=== PATIENT | female | born 1935 | race Hispanic/Latino ===

== ENCOUNTER 2019-07-10 20:11 | Inpatient (IN) | payer MEDICARE, BC ==
--- NOTE | 2019-07-10 21:37 | CT ---
CT BRAIN NONCONTRAST: DATE: 07/10/2019 HISTORY: 83-year-old female status post head trauma due to fall. FINDINGS: There is no evidence of acute intra-axial or extra-axial hemorrhage. There is no midline shift or any other mass effect. There is no extra-axial fluid collection. There is no evidence of obstructive hydrocephalus. Calvarium is intact. There is diffuse brain parenchymal volume loss. There are low att enuation areas in the white matter. These are nonspecific, but in a patient of this age, they are probably chronic ischemic white matter changes due to microvascular atherosclerosis. IMPRESSION: 1) No acute intracranial findings. 2) involutional changes and chronic ischemic white matter changes.
[2019-07-10 21:38] LABS: #Eosinphils 0.1 thou/uL (0.0-0.7); #Lymphocytes 0.8 thou/uL (1.20-3.40); #Monocytes 0.6 thou/uL (0.11-0.59); #Neutrophils 7.1 thou/uL (1.40-6.50); %Basophils 0.4 % (0.0-1.0); %Eosinophils 0.9 % (0.0-10.0); %Lymphocytes 9.5 % (21.0-51.0); %Monocytes 6.5 % (0.0-10.0); %Neutrophils 82.7 % (42.0-75.0); Hemoglobin 12.3 g/dL (12.0-16.0); Mean Corpuscular HGB CONC 33.3 g/dL (32.0-36.0); Mean Corpuscular Hemoglobin 30.5 pg (27.0-31.0); Mean Corpuscular Volume 91.5 fL (78.0-98.0); Mean Platelet Volume 7.2 fL (7.4-10.4); Platelet Count 176 thou/uL (130-400); RBC Distribution Width 12.7 % (11.5-14.5); Red Blood Cell (RBC) Count 4.05 mill/uL (4.20-5.40); White Blood Cell (WBC) Count 8.6 thou/uL (4.8-10.8)
[2019-07-10 21:44] LABS: INR-International Normal Ratio 1.1; PTT 30.5 SEC (22.9-36.1)
--- NOTE | 2019-07-10 21:53 | RAD ---
Radiograph right hip 2 views: DATE: 07/10/2019 Time: 10:15 PM HISTORY: 83-year-old female with acute traumatic right hip pain due to fall FINDINGS: Severe osteopenia. Comminuted intertrochanteric fracture with varus angulation and displacement of mu ltiple butterfly fracture fragments. IMPRESSION: 1. Acute, traumatic, displaced intertrochanteric fracture of right proximal femur. 2. Severe osteoporosis.
[2019-07-10 22:00] LABS: ALT (SGPT) 9 U/L (8-55); AST (SGOT) 14 U/L (5-34); Albumin 4.1 g/dL (3.4-4.8); Alkaline Phosphatase 89 U/L (40-110); Anion Gap 14 mmol/L (10-20); BUN (Urea Nitrogen) 25 mg/dL (9.8-20.1); Bilirubin, Total 0.5 mg/dL (0.2-1.2); Calc. Creatinine Clearance 0 mL/min (70-130); Calcium 9.3 mg/dL (7.8-10.44); Carbon Dioxide 28 mmol/L (23-31); Chloride 98 mmol/L (98-107); Estimated GFR-MDRD 60; Globulin 2.9 g/dL (2.4-3.5); Glucose 159 mg/dL (83-110); Potassium 4.3 mmol/L (3.5-5.1); Sodium 136 mmol/L (136-145)
--- NOTE | 2019-07-10 22:04 | RAD ---
Radiograph right femur 2 views: DATE: 07/10/2019 Time: 10:14 PM HISTORY: 83-year-old female with acute traumatic lower extremity pain after fall FINDINGS: Diffuse severe osteopenia. Comminuted intertrochanteric fracture, with displacement of multiple butte rfly fragments, and varus angulation. Major distal fragment is also displaced medially relative to the femoral neck. No displaced fracture of femoral diaphysis or femoral condyles identified. IMPRESSION: 1. Acute, traumatic, comminuted and significantly displaced intertrochanteric fracture of right proxi mal femur. 2. No fracture of femoral shaft.
--- NOTE | 2019-07-10 22:05 | RAD ---
Radiograph right knee 2 views: HISTORY: 83-year-old female with acute traumatic pain due to fall FINDINGS: Osteoporosis. No fracture or dislocation IMPRESSION: No fracture of the knee identified.
--- NOTE | 2019-07-10 22:09 | RAD ---
RADIOGRAPH CHEST 1 VIEW: Supine DATE: 07/10/2019 HISTORY: 83-year-old female status post acute chest trauma FINDINGS: There is no airspace density or pulmonary edema. The lateral costophrenic angles are sharp. Supine po sitioning makes this study insensitive for the detection of pneumothorax. No cardiomegaly. IMPRESSION: No acute pulmonary findings.
--- NOTE | 2019-07-10 22:11 | RAD ---
Radiograph right humerus 2 views: DATE: 07/10/2019 Time: 10:07 PM HISTORY: 83-year-old female with acute traumatic right arm pain due to fall. FINDINGS: Diffuse severe osteopenia. Transversely oriented subtle faint fracture across the surgical neck of th e humerus with slight foreshortening. Humeral diaphysis shows no acute fracture. IMPRESSION: Acute, traumatic, mildly impacted and mildly angulated fracture at the proximal humeral metaphysis.
--- NOTE | 2019-07-10 22:12 | RAD ---
Radiograph right forearm 2 views: DATE: 07/10/2019 Time: 10:10 PM HISTORY: 83-year-old female status post acute forearm trauma due to fall. FINDINGS: No fracture of the radius or ulna is identified. IMPRESSION: No fracture identified.
--- NOTE | 2019-07-10 22:52 | RAD ---
Radiograph right shoulder 3 views: DATE: 07/10/2019 Time: 10:22 PM HISTORY: 83-year-old female status post acute right shoulder traumatic pain due to fall. FINDINGS: There is mild angulation at the junction between the humeral head and surgical neck, with slight ante rior angulation of fracture apex. The actual fracture lucency is difficult to visualize because of the severe osteoporosis and probable mild impaction. No dislocation. IMPRESSION: 1. Probable fracture at the surgical neck of humerus, probably acute, with probable mild impaction. 2. Diffuse osteoporosis.
--- NOTE | 2019-07-11 00:15 | HP ---
This is Pola Chauhan PA-C dictating a report for Nikolas Diane MD. REQUESTING PHYSICIAN: Dr. Newton. ATTENDING SURGEON: Dr. Diane. CONSULTATIONS: Orthopedics, Dr. Kearney. HISTORY OF PRESENT ILLNESS: The patient is an 83-year-old woman, who resides at home, normally uses a walker to ambulate, but due to her dementia, her family states that she frequently forgets to use it. Tonight, she sustained a ground level fall, landing on her right side. She was unable to ambulate. She was brought to the emergency department by [facility], where she underwent evaluation and examination, and was noted to have a right hip fracture and right proximal humerus fracture; at which time, we were asked to evaluate the patient for admission and obtain Orthopedic consultation. The patient denies hitting her head and she shows no signs of trauma, but it was an unwitnessed fall and she did undergo a brain CT for this, which was unremarkable. ALLERGIES: NONE. CURRENT MEDICATIONS: 1. Amlodipine 5 mg daily. 2. Vitamin D3. 3. Fluoxetine 20 mg daily. 4. Simvastatin 40 mg daily. 5. Benazepril 10 mg daily. 6. Tolterodine 4 mg daily. PAST MEDICAL HISTORY: Bladder incontinence, hyperlipidemia, type 2 diabetes, and dementia. PAST SURGICAL HISTORY: Hysterectomy, cataracts, "bone spurs" in neck removed. SOCIAL HISTORY: The patient lives at home with family. There is no history of drug, tobacco, or alcohol use. REVIEW OF SYSTEMS: A 10-point review of systems is negative except otherwise stated. PHYSICAL EXAMINATION: VITAL SIGNS: Blood pressure 149/53, heart rate 66, respirations 18, oxygen saturation 100% on 2 L via nasal cannula, temperature is 97.8. GENERAL: The patient is resting comfortably in bed. She is awake, conversant. She is alert and oriented x1, which her family member state that this is her baseline. Her Jason Coma Scale is 14. She is minus 1 for confusion. HEENT. Head is normocephalic and atraumatic. Eyes, extraocular motion intact. PERRLA bilaterally. Ears are atraumatic without discharge. Nose is atraumatic without discharge. Oropharynx is clear. NECK: Nontender. Trachea is midline. There is no JVD. CHEST: Clear to auscultation with good inspiratory and expiratory effort. HEART: Regular rate and rhythm. ABDOMEN: Soft, flat, and nontender with active bowel sounds. PELVIS: Stable with tenderness to palpation to the right hip consistent with her fracture. EXTREMITIES: Neurovascularly intact x4. Right upper extremity has tenderness to palpation to the right shoulder consistent again with her fracture. Lower extremities show 1+ pitting edema. BACK: By report is atraumatic and nontender. LABORATORY FINDINGS: White blood cell count 8.6, hemoglobin 12.3, hematocrit 37.0, platelets 176. Sodium 136, potassium 4.3, chloride 98, CO2 of 28, BUN 25, creatinine 0.89, and glucose 159. LFTs are unremarkable. Troponin is 0.015. PT 14, INR 1.1, and PTT 30.5. RADIOGRAPHIC REPORTS: CT of the brain without contrast shows no acute intracranial findings. AP chest x-ray shows no acute pulmonary findings. Views of the right hip show an acute, traumatic, displaced intertrochanteric fracture of the right proximal femur. Views of the right knee show no fracture of the knee. Views of the right femur again show the intertrochanteric fracture. Views of the right forearm show no fracture. Views of the right humerus show an acute traumatic, impacted, and mildly angulated fracture of the proximal humerus. Views of the right shoulder show a fracture of the surgical neck of the humerus. ASSESSMENT: 1. Status post ground level fall. 2. Right proximal humerus fracture. 3. Right intertrochanteric femur fracture. 4. History of diabetes. 5. History of dementia. PLAN: Plan will be to admit the patient to the surgical floor. She will be made n.p.o. after midnight. She will have pain control, pulmonary toilet, gastritis and mechanical VTE prophylaxis. Postoperatively, we will have her begin work with Physical and Occupational Therapy and discuss placement at that time. Initially, the family is leaning more towards home health, home PT as the patient currently has a therapist that does come out to their house 1 to 2 times per week. The evaluation, examination, laboratory, and radiographic findings will be discussed with Dr. Diane after this dictation. Dr. Kearney was called by the emergency room and made aware of this patient also. Job ID: [id number]
[2019-07-11] MEDS ORDERED: Ondansetron PF 4 MG/2 ML Vial IVP PRN (00:47)
[2019-07-11] MEDS ORDERED: Dextrose 50% Abboject 50 ML SYRINGE SLOW IVP PRN (00:47)
[2019-07-11] MEDS ORDERED: Ondansetron ODT 4 MG TAB PO PRN (00:47)
[2019-07-11] MEDS ORDERED: Dextrose 5% in Water 1,000 ML IV PRN (00:47)
[2019-07-11] MEDS ORDERED: Sodium Chloride 0.9% 1,000 ML IV SCH ×2 (00:47→07:44)
[2019-07-11] MEDS ORDERED: Acetaminophen 1,000 MG in Premix Bag 1 BAG IVPB SCH (01:00)
[2019-07-11] MEDS ORDERED: Ketorolac Tromethamine 30 MG/ML VIAL IVP SCH (01:00)
[2019-07-11] MEDS: Morphine 2 MG/ML SYRINGE SLOW IVP PRN ×2 (01:07→05:37)
[2019-07-11 02:33] VITALS: BMI 22.1
[2019-07-11 04:51] LABS: #Lymphocytes 0.4 thou/uL (1.20-3.40); #Monocytes 0.5 thou/uL (0.11-0.59); #Neutrophils 7.4 thou/uL (1.40-6.50); %Basophils 0.2 % (0.0-1.0); %Eosinophils 0.1 % (0.0-10.0); %Lymphocytes 4.3 % (21.0-51.0); %Monocytes 6.2 % (0.0-10.0); %Neutrophils 89.2 % (42.0-75.0); Hemoglobin 10.9 g/dL (12.0-16.0); Mean Corpuscular HGB CONC 33.4 g/dL (32.0-36.0); Mean Corpuscular Hemoglobin 30.6 pg (27.0-31.0); Mean Corpuscular Volume 91.5 fL (78.0-98.0); Mean Platelet Volume 7.5 fL (7.4-10.4); Platelet Count 150 thou/uL (130-400); RBC Distribution Width 12.6 % (11.5-14.5); Red Blood Cell (RBC) Count 3.56 mill/uL (4.20-5.40); White Blood Cell (WBC) Count 8.3 thou/uL (4.8-10.8)
[2019-07-11 05:14] LABS: Anion Gap 9 mmol/L (10-20); BUN (Urea Nitrogen) 26 mg/dL (9.8-20.1); Calc. Creatinine Clearance 40 mL/min (70-130); Calcium 8.8 mg/dL (7.8-10.44); Carbon Dioxide 29 mmol/L (23-31); Chloride 101 mmol/L (98-107); Estimated GFR-MDRD 64; Glucose 156 mg/dL (83-110); Potassium 4.8 mmol/L (3.5-5.1); Sodium 134 mmol/L (136-145)
[2019-07-11] MEDS: Acetaminophen 1,000 MG in Premix Bag 1 BAG IVPB SCH ×2 (05:35→13:12)
[2019-07-11] MEDS: Ketorolac Tromethamine 30 MG/ML VIAL IVP SCH ×3 (05:36→18:20)
[2019-07-11] MEDS ORDERED: CEFAZOLIN 2 GM in Premix Bag 1 BAG IVPB SCH (07:15)
[2019-07-11] MEDS: Trospium 20 MG TAB PO SCH ×2 (08:43→22:31)
[2019-07-11] MEDS: FLUoxetine HCl 20 MG CAP PO SCH (08:43)
[2019-07-11] MEDS: Famotidine 20 MG TAB PO SCH ×2 (08:43→20:39)
[2019-07-11] MEDS ORDERED: Non-Formulary Item 1 EACH (Fluoxetine Hcl [Fluoxetine Hcl] 20 MG) PO SCH (09:00)
[2019-07-11] MEDS ORDERED: Ketorolac Tromethamine 30 MG/ML VIAL ONE (11:22)
[2019-07-11] MEDS ORDERED: Fentanyl 100 MCG/2 ML VIAL ONE (12:39)
--- NOTE | 2019-07-11 13:02 | PRG ---
DATE OF SERVICE: 07/11/2019 SUBJECTIVE: The patient is an 83-year-old woman, hospital day #2, who is admitted for a ground level fall, where she landed on her right side. Upon evaluation, she was found to have a right hip fracture and right proximal humerus fracture. Dr. Kearney plans to take the patient to the OR today for repair of these fractures. This morning, the patient has no complaints. She says her pain control is good. OBJECTIVE: VITAL SIGNS: Temperature 97.7 Fahrenheit, pulse 72, blood pressure 116/52, respirations 16, O2 saturation 100% on 2 L via nasal cannula. GENERAL: The patient is resting comfortably in bed. She is awake and alert. She is not oriented, which her says is her baseline. HEENT: Head is normocephalic and atraumatic. EOMI. ABDOMEN: Soft, flat, and nontender. PELVIS: Tender to palpation over right hip, consistent with location of her fracture. LABORATORY FINDINGS: White blood cell count 8.3, hemoglobin 10.9, hematocrit 32.6, and platelets 150. Sodium 134, potassium 4.8, chloride 101, CO2 of 29, BUN 26, creatinine 0.84, and glucose 156. ASSESSMENT: 1. Status post ground level fall, hospital day #2. 2. Right proximal humerus fracture. 3. Right intertrochanteric femur fracture. 4. History of type 2 diabetes. 5. History of hyperlipidemia. 6. History of bladder incontinence. 7. History of dementia. PLAN: Plan will be to continue observing the patient on the surgical floor. Dr. Kearney plans to take the patient to the OR later today for repair of hip and humerus fractures. Continue pain control, pulmonary toilet, gastritis, mechanical VTE prophylaxis. Once surgical repair completed, we will plan to have her work with Physical and Occupational Therapy and discuss placement at that time. Initially, the family is leaning more toward home health with home PT as the patient currently has a therapist that comes to the house two times per week. The patient was seen and evaluated by Dr. Hsasan during morning rounds. Discussed plan of care with the patient and family, who are in agreement. Job ID: [id number]
--- NOTE | 2019-07-11 13:34 | CON ---
DATE OF CONSULTATION: 07/11/2019 CHIEF COMPLAINT: Right shoulder and right leg pain. HISTORY OF PRESENT ILLNESS: Ms. Youngblood is an 83-year-old female, who was at home. She uses a cane for mobility. She does have somewhat poor balance. She lost her balance and fell onto her right side. She lives with her . She was taken to the emergency department by EMS. She was found to have a right proximal humerus fracture as well as a right subtrochanteric femur fracture. The patient has been admitted by the General Surgery Service. Orthopedics was consulted. She denies loss of consciousness. The patient has been comfortable on the floor. ALLERGIES: NONE. MEDICATIONS: 1. Amlodipine. 2. Vitamin D. 3. Fluoxetine. 4. Simvastatin. 5. Benazepril. 6. Tolterodine. PAST MEDICAL HISTORY: Hyperlipidemia, diabetes, dementia, and incontinence of the bladder. PAST SURGICAL HISTORY: Hysterectomy and cataract surgery. She has also had cervical spine surgery. SOCIAL HISTORY: The patient lives at home with her . She uses a cane. She denies tobacco, alcohol, or drug use. REVIEW OF SYSTEMS: Positive for right hip pain and right shoulder pain as per HPI. Otherwise, negative 10-point review of systems. IMAGES: X-rays of the right shoulder demonstrate a proximal humerus fracture. There is slight shortening. There is no significant displacement or angulation. The right femur demonstrates a subtrochanteric fracture of the femur with comminution and displacement. There is significant thinning and osteoporotic appearance of the bones. PHYSICAL EXAMINATION: VITAL SIGNS: Temperature is 97.7, pulse is 72, respiratory rate is 16, oxygen saturations 100% on 2 L of nasal cannula, and blood pressure is 116/52. GENERAL: She is alert, lying supine, in no apparent distress. RESPIRATORY: Breathing comfortably. ABDOMEN: Soft, nontender, and nondistended. MUSCULOSKELETAL: The patient's right lower extremity is neurovascularly intact. She does have pain with any motion at the hip. She has a shortened and externally rotated posture. The right shoulder is in a sling. She is neurovascularly intact in the upper extremity. Skin is intact throughout. IMPRESSION: Right proximal humerus fracture and right subtrochanteric femur fracture in an elderly female. PLAN: At this point, the patient will need surgical intervention regarding her femur. The shoulder can be treated nonoperatively with a sling. We will take her to the operating room for intramedullary nail of the right femur today to allow early mobilization, pain relief, and promote healing. She will have DVT prophylaxis and antibiotic prophylaxis. She is at risk for complication and is aware of this. Job ID: [id number]
[2019-07-11] MEDS ORDERED: Promethazine HCl 25 MG/ML VIAL IM PRN (13:49)
[2019-07-11] MEDS ORDERED: Ondansetron HCl/PF 4 MG/2 ML Vial IVP PRN (13:49)
[2019-07-11] MEDS ORDERED: Promethazine HCl 25 MG/ML VIAL SLOW IVP PRN (13:49)
[2019-07-11] MEDS ORDERED: PROPOFOL 200 MG/20 ML VIAL ONE (13:51)
[2019-07-11] MEDS ORDERED: ePHEDrine/0.9% NaCl/PF SYRINGE 50 mg/10 ml ONE ×2 (13:51→17:11)
[2019-07-11] MEDS ORDERED: Lidocaine 1% PF 5 ML VIAL ONE (13:51)
[2019-07-11] MEDS ORDERED: PHENYLEPHRINE-NS 100 MCG/ML 10 ML SYRINGE ONE (13:51)
--- NOTE | 2019-07-11 14:54 | RAD ---
Right femur 2 views: HISTORY: Right femur fracture FINDINGS: 6 spot fluoroscopic intraoperative images of the right femur demonstrate interval reduction and inter nal fixation of the fracture seen on exam of previous day
[2019-07-11] MEDS ORDERED: traMADol HCl 50 MG TAB PO PRN (15:44)
[2019-07-11] MEDS ORDERED: Acetaminophen 500 MG TAB PO SCH (18:00)
[2019-07-11 18:18] LABS: #Lymphocytes 0.5 thou/uL (1.20-3.40); #Monocytes 0.7 thou/uL (0.11-0.59); #Neutrophils 8.6 thou/uL (1.40-6.50); %Eosinophils 0.3 % (0.0-10.0); %Lymphocytes 4.6 % (21.0-51.0); %Monocytes 7.2 % (0.0-10.0); %Neutrophils 87.9 % (42.0-75.0); Hemoglobin 8.7 g/dL (12.0-16.0); Mean Corpuscular Hemoglobin 30.8 pg (27.0-31.0); Mean Corpuscular Volume 93.3 fL (78.0-98.0); Mean Platelet Volume 7.4 fL (7.4-10.4); Platelet Count 133 thou/uL (130-400); RBC Distribution Width 12.5 % (11.5-14.5); Red Blood Cell (RBC) Count 2.82 mill/uL (4.20-5.40); White Blood Cell (WBC) Count 9.8 thou/uL (4.8-10.8)
[2019-07-11 18:22] LABS: INR-International Normal Ratio 1.2; Prothrombin Time 15.6 SEC (12.0-14.7)
[2019-07-11 18:37] LABS: Anion Gap 11 mmol/L (10-20); BUN (Urea Nitrogen) 25 mg/dL (9.8-20.1); Calc. Creatinine Clearance 38 mL/min (70-130); Calcium 8.1 mg/dL (7.8-10.44); Carbon Dioxide 25 mmol/L (23-31); Chloride 103 mmol/L (98-107); Estimated GFR-MDRD 61; Glucose 171 mg/dL (83-110); Magnesium 1.8 mg/dL (1.6-2.6); Phosphorus 4.3 mg/dL (2.3-4.7); Potassium 4.3 mmol/L (3.5-5.1); Sodium 135 mmol/L (136-145)
--- NOTE | 2019-07-11 20:14 | OP ---
DATE OF PROCEDURE: 07/11/2019 PROCEDURE PERFORMED: Right femur intramedullary nail. PREOPERATIVE DIAGNOSIS: Right subtrochanteric femur fracture. POSTOPERATIVE DIAGNOSIS: Right subtrochanteric femur fracture. COMPLICATIONS: None. ESTIMATED BLOOD LOSS: 200 mL. MATERIAL DISPATCHER: Jimy Lott PA-C IMPLANT: Synthes long trochanteric femoral nail size 11 x 360 mm with Crosslock screws. INDICATIONS FOR PROCEDURE: Ms. Youngblood is an 83-year-old female, who fell and fractured the proximal femur. She was indicated for intramedullary nail fixation to restore anatomic alignment and promote healing and promote early mobilization. Risks have been reviewed to include nonunion, malunion, infection, wound complication, DVT, PE, and others. DESCRIPTION OF PROCEDURE: Ms. Youngblood was identified in the preoperative holding area. Her correct extremity was marked. She was carried to the operating room. She was positioned supine. General anesthesia was induced. A multidisciplinary time-out was performed. The right lower extremity was prepped and draped in sterile fashion. We began the procedure by applying traction to the lower extremity. We manipulated the fracture back into its anatomic position. We took intraoperative x-ray images. We made a small incision proximal to the trochanter. We dissected down through the subcutaneous tissues to the bony level. We inserted our guidewire. At this point, we again took images. We then overdrilled the guidewire. Next, we placed a ball-tipped guidewire from proximal to distal across the fracture site. Next, we placed our 11 mm nail over the guidewire through the fracture. We placed a proximal helical blade using a guidewire in a center-center technique. We then placed a distal Crosslock screw. This completed the procedure. We took final images. We thoroughly irrigated with copious lavage. We then closed appropriately in layers. Job ID: [id number]
[2019-07-11] MEDS ORDERED: Hydrocortisone Sod Succ/PF 100 mg/2 ml Vial IVP SCH (20:15)
[2019-07-11] MEDS: Donepezil HCl 10 MG TAB PO SCH (20:39)
[2019-07-11] MEDS: Atorvastatin Calcium 20 MG TAB PO SCH (20:39)
[2019-07-11] MEDS ORDERED: Simvastatin 40 MG TAB PO SCH (21:00)
[2019-07-11] MEDS ORDERED: Tolterodine Tartrate LA 4 MG CAP PO SCH (21:00)
[2019-07-11 21:35] LABS: Troponin I 0.456 ng/mL (< 0.028)
[2019-07-11] MEDS: CEFAZOLIN 2 GM in Premix Bag 1 BAG IVPB SCH (21:59)
[2019-07-11] MEDS: Acetaminophen 500 MG TAB PO SCH (22:31)
--- NOTE | 2019-07-12 00:10 | PRG ---
DATE OF SERVICE: 07/11/2019 SUBJECTIVE: The patient is hospital day 2, postop day #0 from a ground level fall in which she sustained a right proximal femur fracture. She has undergone right femur intramedullary nail placement. She reportedly did well during the procedure, though postoperatively, it was noted that she was hypotensive and upon further review, she had actually received small doses of vasopressors during the case and also had received 4 L of IV fluids. It was noted that once the patient got to the surgical floor that she had become hypotensive and tachycardic. She was moved to the critical care unit to begin resuscitation to include blood products. She was also given 100 mg of hydrocortisone. The patient's systolic blood pressure was in the 70s and heart rate between 110 and 120. After an hour in the critical care unit, the patient's systolic blood pressure was above 100 and her heart rate was 100. OBJECTIVE: CURRENT VITAL SIGNS: Heart rate 100, blood pressure 102/55, respirations 22, oxygen saturation is 100% on 4 L via nasal cannula. GENERAL: The patient is now resting comfortably in bed, though when I saw her in the surgical floor she was also still appeared very comfortable. She denied any pain. She is alert and oriented x1, which is her baseline. The family at bedside agreed this was her at baseline. HEENT: Unremarkable. LUNGS: Clear to auscultation with good inspiratory and expiratory effort. HEART: Slightly tachycardic with a regular rhythm. EKG showed a sinus tachycardia. ABDOMEN: Soft, flat, nontender. EXTREMITIES: Neurovascularly intact x4. Postop dressing is clean, dry, and intact. Her thigh is only slightly larger on the surgical side than the opposing side. ASSESSMENT AND PLAN: 1. Status post ground level fall, hospital day #2. 2. Status post intramedullary nail fixation. 3. Hypotension likely related to blood loss. CBC is pending. 4. History of type 2 diabetes. 5. History of hyperlipidemia. 6. History of bladder incontinence. 7. History of dementia. PLAN: Plan will be to continue to evaluate the patient. Once her unit of blood is in, we will reassess. She has labs specifically at this time, a BNP that is pending. She did have a slightly elevated troponin. We will trend this in 4 hours in light of the 4 L of IV fluids. The patient may require diureses pending her labs. She is also scheduled to get an echocardiogram. We will continue to closely monitor the patient. To include her urinary output. Job ID: [id number]
[2019-07-12] MEDS ORDERED: Insulin Regular 300 UNITS/3 ML VIAL SC PRN (01:25)
[2019-07-12 01:49] LABS: Troponin I 2.742 ng/mL (< 0.028)
[2019-07-12] MEDS ORDERED: Aspirin 325 mg Enteric Coated Tablet PO SCH (02:15)
[2019-07-12] MEDS: CEFAZOLIN 2 GM in Premix Bag 1 BAG IVPB SCH (05:04)
[2019-07-12] MEDS: Acetaminophen 500 MG TAB PO SCH ×3 (05:04→17:51)
[2019-07-12 05:54] LABS: Anion Gap 11 mmol/L (10-20); BUN (Urea Nitrogen) 24 mg/dL (9.8-20.1); Calc. Creatinine Clearance 43 mL/min (70-130); Calcium 7.9 mg/dL (7.8-10.44); Carbon Dioxide 24 mmol/L (23-31); Chloride 106 mmol/L (98-107); Estimated GFR-MDRD 60; Glucose 166 mg/dL (83-110); Magnesium 1.7 mg/dL (1.6-2.6); Phosphorus 3.9 mg/dL (2.3-4.7); Potassium 4.8 mmol/L (3.5-5.1); Sodium 136 mmol/L (136-145)
[2019-07-12 05:56] LABS: #Lymphocytes 0.3 thou/uL (1.20-3.40); #Monocytes 0.4 thou/uL (0.11-0.59); #Neutrophils 5.8 thou/uL (1.40-6.50); %Eosinophils 0.1 % (0.0-10.0); %Lymphocytes 3.8 % (21.0-51.0); %Monocytes 6.8 % (0.0-10.0); %Neutrophils 89.3 % (42.0-75.0); Hemoglobin 8.4 g/dL (12.0-16.0); Mean Corpuscular HGB CONC 33.5 g/dL (32.0-36.0); Mean Corpuscular Hemoglobin 31.1 pg (27.0-31.0); Platelet Count 101 thou/uL (130-400); Platelet Morphology Comment Appears Decreased; RBC Distribution Width 12.7 % (11.5-14.5); Red Blood Cell (RBC) Count 2.71 mill/uL (4.20-5.40); White Blood Cell (WBC) Count 6.5 thou/uL (4.8-10.8)
[2019-07-12] MEDS: Insulin Regular 300 UNITS/3 ML VIAL SC PRN ×2 (06:06→15:39)
[2019-07-12 07:12] LABS: Troponin I 7.385 ng/mL (< 0.028)
[2019-07-12] MEDS ORDERED: Magnesium 2 GM/50 ML 2 GM in Premix Bag 1 BAG IVPB SCH (08:45)
[2019-07-12] MEDS: FLUoxetine HCl 20 MG CAP PO SCH (09:46)
[2019-07-12] MEDS: Trospium 20 MG TAB PO SCH ×2 (09:46→21:38)
[2019-07-12] MEDS ORDERED: Sodium Chloride 0.9% 250 ML IV SCH (10:30)
[2019-07-12] MEDS ORDERED: Sodium Chloride 0.9% 1,000 ML IV SCH ×2 (12:15→16:00)
[2019-07-12] MEDS ORDERED: DOPamine 400 MG/D5W 250 ML 250 ML ONE (12:27)
--- NOTE | 2019-07-12 12:44 | RAD ---
EXAM: Single view of the chest HISTORY: Myocardial infarction COMPARISON: 07/10/2019 FINDINGS: Single view of the chest shows a normal sized cardiomediastinal silhouette. Atheroscleroti c calcifications are seen in the aorta. Biapical pleural thickening is seen. There is no evidence of consolidation, mass, or pleural effusion. The bones are unremarkable. IMPRESSION: No evidence of acute cardiopulmonary disease
[2019-07-12] MEDS ORDERED: DOPamine 400 MG/D5W 250 ML 250 ML IVPB SCH (12:45)
[2019-07-12] MEDS ORDERED: Calcium Chloride 1 GM/10 ML Abboject SYRINGE ONE (14:01)
[2019-07-12 14:59] LABS: Actual Bicarbonate (HCO3a) 21.9 mEq/L (22-28); CO2 Tension 49.3 mmHg (35.0-45.0); Calcium, Ionized 1.26 mmol/L (1.12-1.30); Carboxyhemoglobin (COHb) 1.2 gm% (0.0-3.0); O2 Tension (PaO2) 91.8 mmHg (> 60.0); Potassium - ABG Lab 4.36 mmol/L (3.70-5.30); pH, Arterial 7.27 (7.35-7.45)
--- NOTE | 2019-07-12 15:01 | RAD ---
Chest AP view INDICATION: Central line placement COMPARISON: Prior exam dated July 12, 2019 FINDINGS: Lungs:Moderate to severe emphysema Cardiac silhouette:Mild cardiomegaly Pulmonary vasculature:Normal Pleural spaces:No pleural effusion or pneumothorax is demonstrated. Upper abdomen:Gastric catheter projects below the left hemidiaphragm and beyond the [id number]. Osseous structures: No acute osseous abnormality. There is a comminuted fracture the proximal right h umerus. Additional findings:New left subclavian central venous catheter. The tip projects in the region of th e cavoatrial junction. No pneumothorax IMPRESSION: Stable mild cardiac megaly. Stable emphysema. New tubes and lines as above. No pneumothor ax. Proximal right humerus fracture.
[2019-07-12 15:04] LABS: ALV-art Gradient 46.215 (0-20); Puncture Site LINE
[2019-07-12 15:07] LABS: Actual Bicarbonate (HCO3v) 23 mEq/L (22-28); Base Excess -4.7 mEq/L (-2.0 to +3.0); Calcium, Ionized 1.26 mmol/L (1.16-1.32); Chloride (ABG LAB) 103 mmol/L (98-106); Hemoglobin (Hb) 9.2 g/dL (11.7-16.1); Potassium - ABG Lab 4.44 mmol/L (3.70-5.30); Sodium 134.4 mmol/L (133-146)
[2019-07-12 15:08] LABS: pH (venous) 7.23 (7.32-7.43)
[2019-07-12 16:05] LABS: #Lymphocytes 0.3 thou/uL (1.20-3.40); #Monocytes 0.6 thou/uL (0.11-0.59); %Eosinophils 0.1 % (0.0-10.0); %Lymphocytes 3.7 % (21.0-51.0); %Monocytes 8.4 % (0.0-10.0); %Neutrophils 87.8 % (42.0-75.0); Hemoglobin 9.4 g/dL (12.0-16.0); Mean Corpuscular HGB CONC 33.8 g/dL (32.0-36.0); Mean Corpuscular Hemoglobin 31.5 pg (27.0-31.0); Mean Platelet Volume 7.6 fL (7.4-10.4); Platelet Count 104 thou/uL (130-400); RBC Distribution Width 12.7 % (11.5-14.5); Red Blood Cell (RBC) Count 2.98 mill/uL (4.20-5.40); White Blood Cell (WBC) Count 6.9 thou/uL (4.8-10.8)
--- NOTE | 2019-07-12 16:14 | PRG ---
DATE OF SERVICE: 07/12/2019 SUBJECTIVE: Ms. Youngblood is an 83-year-old woman, who is postop day #1, status post right IM nail to right subtrochanteric femur fracture. The patient developed perioperative non-ST elevation myocardial infarction. This morning, the patient is hypotensive. Echocardiogram revealed dilated right ventricle with moderate to severe tricuspid regurgitation. Ejection fraction, however, is noted at 55% to 60%. No wall motion abnormality was reported. The patient is sleepy, but arousable. OBJECTIVE: VITAL SIGNS: Blood pressure 73/41, pulse was 117, respiratory rate is 22, temperature 97.7 degrees Fahrenheit, oxygen saturation 93% on room air, improved to 99% on 2 L by nasal cannula oxygen. HEENT: Pupils are equal, round, and reactive to light and accommodation. NECK: She has no jugular venous distention noted. HEART: Reveals regular rate with sinus tachycardia. No murmurs or gallops auscultated. LUNGS: Clear to auscultation bilaterally. Breathing, regular and nonlabored. ABDOMEN: Soft, nontender, and nondistended. EXTREMITIES: Reveal thready, but palpable radial and pedal pulses. NEUROLOGIC: Reveals no focal deficits present. LABORATORY FINDINGS: Today include CBC with 6500 white blood cells, hemoglobin and hematocrit 8.4 and 25.2 respectively. Platelet count is 101,000. Metabolic profile; sodium 134, potassium is 4.44, chloride is 103, glucose 200. Arterial blood gas; pH 7.27, pCO2 of 49, pO2 is 92, base excess -5.0. Ionized calcium was noted at 1.26, this was after 1 g of calcium chloride was given empirically. The patient had also received 1 unit of packed red blood cell prior to this lab findings. HEMODYNAMIC PARAMETERS: Cardiac index was 2.6. SVI was 17, SVRI is 2200. CVP was initially 7 and we had given the patient fluid boluses and completed transfusion of 1 unit of packed red blood cells. Cardiac index improved to 2.9, SVI is now 27, CVP is 12, SVRI is 1400. Mixed venous oxygen is 67%. IMPRESSION: 1. Postop day #1 status post IM nail right subtrochanteric femur fracture. 2. Perioperative non-ST elevation myocardial infarction. 3. Acute mixed hypovolemic and cardiogenic shock. 4. Acute respiratory acidosis. PLAN: Continue with volume resuscitation. Monitor urinary output and the patient's mental status as endpoint of resuscitation. Above findings and plan discussed with the patient and her family at bedside. They indicated understanding of the information given. We will wean the dopamine off as tolerated. Job ID: [id number]
[2019-07-12] MEDS: Sodium Chloride 0.9% 1,000 ML IV SCH ×2 (16:20→18:22)
[2019-07-12] MEDS ORDERED: Calcium Chloride 13.6 MEQ in Sodium Chloride 0.9% 100 ML IVPB SCH (16:30)
--- NOTE | 2019-07-12 16:42 | PRG ---
DATE OF SERVICE: 07/12/2019 SUBJECTIVE: The patient is hospital day #3, postoperative day #1, status post ground-level fall with a right proximal femur fracture. The patient also sustained a right humerus fracture, which is nonoperative, and the patient is managed in a sling at this time. The patient remains on a critical care unit. The patient is currently awake, alert, and voices no complaints of chest pain or shortness of breath. The patient did have an elevation in her troponin. The patient is pending evaluation by Cardiology. The patient just had a 2D echo obtained and also pending read by Cardiology. The patient's urinary output has slowly decreased, but remains adequate for the patient's weight. The patient's vitals are currently stable at this time. OBJECTIVE: VITAL SIGNS: Blood pressure 110/55, heart rate 90, respirations 18, SpO2 of 99% on room air. GENERAL: Elderly appearing female, lying in hospital bed, the patient is awake and alert, in no acute distress. HEENT: Unremarkable. LUNGS: Clear bilateral, good inspiratory and expiratory effort. HEART: Regular rate, regular rhythm. No murmur. ABDOMEN: Soft, nontender, and nondistended. EXTREMITIES: Neurovascularly intact. Postoperative dressing to right hip is clean, dry, and intact. Sling in place to right upper extremity. Mild edema in all extremities. LABORATORY DATA: WBC 6.5, RBC 2.71, hemoglobin 8.4, hematocrit 25.2, and platelets 101. Sodium 136, potassium 4.8, chloride 106, BUN 24, creatinine 0.90, estimated GFR is 60, glucose 166, and calcium 7.9. Phosphorus 3.9. Magnesium 1.7. Troponin 7.385. DIAGNOSTIC DATA: Chest x-ray, no evidence of acute cardiopulmonary disease. ASSESSMENT: 1. Status post ground-level fall, hospital day #3. 2. Status post intramedullary nail fixation, right femur, postoperative day #1. 3. Acute traumatic pain. 4. Volume depletion. 5. Aek-ZP-qedniuskh myocardial infarction, postoperative. 6. Blood loss anemia. 7. Right humerus fracture, non operative. 8. History of type 2 diabetes, hyperlipidemia, bladder incontinence, and dementia. PLAN: Continue supportive care. We will resuscitate as needed. Pending recommendations from Cardiology at this time. Also pending echo at this time. We will transfuse 1 unit of packed red blood cells as the patient's hemoglobin is 8.7. The patient was examined by Dr. Hassan during morning rounds. Job ID: [id number] MTDD
--- NOTE | 2019-07-12 17:02 | CON ---
DATE OF CONSULTATION: CRITICAL CARE NOTE TIME: 40 minutes. HISTORY OF PRESENT ILLNESS: The patient is a pleasant 83-year-old woman with no known cardiac history, who presented with a hip fracture and was noted to have elevated cardiac enzymes. The patient was previously seen for evaluation of venous disease of the lower extremities. She apparently has no cardiac history. The patient presented after she had a fall. She underwent surgery. The patient developed hypotension. She was noted to have elevated cardiac enzymes. The patient denies having any chest discomfort or dyspnea. The patient does have a history of dementia, she believes that since adolescence of the patient. PAST MEDICAL HISTORY: Significant for; 1. History of dementia. 2. Hypertension. 3. Diabetes mellitus. 4. Dyslipidemia. PAST SURGICAL HISTORY: 1. Arm surgery. 2. Hysterectomy. 3. Neck surgery. SOCIAL HISTORY: Nonsmoker. MEDICATIONS: See nursing notes. PHYSICAL EXAMINATION: GENERAL: This is an ill-appearing woman, who is somnolent. VITAL SIGNS: Blood pressure of 80/40. NECK: No jugular venous distention. LUNGS: Clear to auscultation. HEART: Regular rate and rhythm. Normal S1 and S2. A 1/6 systolic murmur. ABDOMEN: Nondistended. EXTREMITIES: No edema. LABORATORY RESULTS: Sodium is 136, potassium 4.8, chloride 106, bicarbonate 24, BUN 24, creatinine 0.9, and glucose 166. Troponin was 7.3. White blood cell count 6.5, hemoglobin 8.4, hematocrit 25.2, and platelets are 101. Her EKG reveals sinus bradycardia, otherwise normal ECG. IMPRESSION: 1. Hypotension following hip surgery. 2. Non-Q-wave myocardial infarction. 3. Hypertension. 4. Diabetes mellitus. 5. Dyslipidemia. 6. Dementia. This patient has suffered a non-Q-wave myocardial infarction, probably secondary to hypotension. From a cardiac standpoint, She appears to have normal left ventricular systolic function. We would actually hydrate the patient who is hypotensive. We would recommend transfusing the patient another unit of packed red blood cells. We will hold aspirin at this time as there is no evidence of acute ischemia and this is most likely due to prolonged hypotension. We will follow this patient with you through her hospitalization. Critical care note time 40 minutes. Job ID: [id number]
[2019-07-12] MEDS ORDERED: Albumin 5% 250 ML ONE (20:38)
[2019-07-12] MEDS ORDERED: Famotidine/PF 20 mg/2ml Vial SLOW IVP SCH ×2 (21:00)
[2019-07-12] MEDS ORDERED: Famotidine 20 MG TAB PO SCH (21:00)
[2019-07-12 21:38] LABS: Actual Bicarbonate (HCO3a) 22.4 mEq/L (22-28); Base Excess (BEa) -4.2 mEq/L (-2.0 to +3.0); CO2 Tension 47.9 mmHg (35.0-45.0); Calcium, Ionized 1.19 mmol/L (1.12-1.30); Carboxyhemoglobin (COHb) 0.9 gm% (0.0-3.0); Hemoglobin (Hb) 9.4 g/dL (12.0-16.0); O2 Tension (PaO2) 110.4 mmHg (> 60.0); Potassium - ABG Lab 4.47 mmol/L (3.70-5.30); pH, Arterial 7.29 (7.35-7.45)
[2019-07-12] MEDS: Atorvastatin Calcium 20 MG TAB PO SCH (21:38)
[2019-07-12] MEDS: Donepezil HCl 10 MG TAB PO SCH (21:38)
[2019-07-12 21:41] LABS: ALV-art Gradient 57.885 (0-20); Puncture Site LINE
[2019-07-12] MEDS ORDERED: Calcium Chloride 1 GM/10 ML Abboject SYRINGE IVP SCH (21:45)
[2019-07-12] MEDS: Acetaminophen 1,000 MG in Premix Bag 1 BAG IVPB SCH (22:01)
[2019-07-12 22:30] LABS: Lactic Acid 0.9 mmol/L (0.5-2.2)
--- NOTE | 2019-07-12 23:08 | OP ---
DATE OF PROCEDURE: 07/12/2019 PREOPERATIVE DIAGNOSES: 1. Postop day #1, status post intramedullary nail, right subtrochanteric femur fracture. 2. Perioperative non ST elevation myocardial infarction. 3. Acute cardiogenic and hypovolemic shock. POSTOPERATIVE DIAGNOSES: 1. Postop day #1, status post intramedullary nail, right subtrochanteric femur fracture. 2. Perioperative non ST elevation myocardial infarction. 3. Acute cardiogenic and hypovolemic shock. PROCEDURES PERFORMED: 1. Placement of a triple-lumen left subclavian central venous catheter. 2. Placement of right femoral arterial catheter. INDICATIONS FOR PROCEDURE: An 83-year-old woman is postop day #1, status post IM nail, right subtrochanteric femur fracture. She developed a perioperative non ST elevation myocardial infarction. She is currently hypotensive requiring vasopressor support. Hemodynamic monitor is warranted to guide resuscitative efforts. DESCRIPTION OF PROCEDURE: Informed consent was obtained from the patient's . The patient was placed in supine position. Left chest wall was sterilely prepped and draped in usual fashion. The skin below the left clavicle was anesthetized with 1% lidocaine. Left subclavian vein was cannulated with an 18-gauge introducer needle returning dark venous blood. Guidewire was passed through the needle and advanced into the left subclavian vein without resistance. Needle was withdrawn over a guidewire. A stab incision was made adjacent to the guidewire using 11 scalpel. Dilator was passed over the guidewire dilating the subcutaneous tissues. Dilator was removed and replaced with a triple-lumen central venous catheter, which was advanced over the guidewire and placed in the left subclavian vein without resistance stopping at the 18 cm fernanda. Guidewire was removed. Dark venous blood was aspirated from all three ports, which were individually flushed with saline. Catheter was secured to anterior chest wall using 3-0 silk suture at two points. Sterile dressings were applied. Chest x-ray was obtained confirming proper placement and no pneumothorax present. Attention was directed to the right groin, which was sterilely prepped and draped in usual fashion. The right femoral artery was palpated and cannulated with a 20-gauge introducer needle returning pulsatile blood. Guidewire passed through the needle and advanced into the right femoral artery without resistance. Needle was withdrawn over the guidewire. A 20-gauge arterial catheter was advanced over the guidewire and placed in the right femoral artery without resistance. The guidewire was removed. The catheter was connected to a transducer with proper waveforms noted. Catheter was secured to right groin using 3-0 silk suture at two points. Sterile dressings were applied. The patient tolerated the procedure without any apparent complication, remained hemodynamically stable following completion of procedure. Job ID: [id number]
--- NOTE | 2019-07-12 23:17 | PRG ---
DATE OF SERVICE: 07/12/2019 SUBJECTIVE: Patient was seen this evening during rounds. She did have 2 episodes of hypotension this evening. Initially, she was placed back on the dopamine drip and received a 250 cc bolus of albumin. Subsequently, the dopamine drip was weaned off. However, the patient shortly thereafter did become hypotensive again with systolics in the 80s. Dopamine was restarted back at 2.[address] Hassan was contacted. An additional 250 cc bolus of albumin was administered. During the initial hypotension, the patient did have a bout of nausea and vomiting which improved. The patient's condition did improve thereafter and urinary output has also been improving. OBJECTIVE: VITAL SIGNS: Temperature 97.5, pulse 93, respirations 20, oxygen saturation 100% on 2 L nasal cannula, blood pressure 109/46. GENERAL: Elderly female, lying in bed with no signs of acute distress. PULMONARY: Equal chest rise and fall. Clear breath sounds bilaterally, but there is some upper respiratory rattle, likely from mucus that the patient is not able to clear well, otherwise no signs of acute respiratory distress. CARDIAC: Regular rate and rhythm. No murmurs, gallops, or rubs. GI: Abdomen is soft, nontender, nondistended. EXTREMITIES: 2+ pulses in all extremities. Gross motor and sensation are intact. No significant swelling noted. NEURO: GCS is 14, -1 for verbal; this is the patient's baseline. LABORATORY FINDINGS: ABG completed tonight demonstrated pH of 7.29, CO2 of 47.9, O2 of 110.9, bicarb 22.4, base excess -4.2. Hemoglobin 9.4, hematocrit 28.0. Sodium 136, potassium 4.47, chloride 105, ionized calcium 1.19. DIAGNOSTIC FINDINGS: Echo completed this afternoon demonstrates ejection fraction is visually estimated at 55% to 60%, normal size left atrium, moderately enlarged right ventricle cavity, left ventricular size is normal, aortic valve leaflets are somewhat thickened, mild aortic stenosis is present, mild mitral regurg is present, Oblcffny-sw-hhzzqc tricuspid regurgitation. Chest x-ray completed this afternoon also demonstrates stable mild cardiomegaly, stable emphysema, new tubes and lines as above, no pneumothorax, proximal right humerus fracture. ASSESSMENT: 1. Status post mechanical fall. 2. Left humerus fracture, nonoperative. 3. Right intertrochanteric femur fracture, status post repair, postop day 1. 4. Perioperative jvh-YD-srnujttvm myocardial infarction. 5. Acute mixed hypovolemic and cardiogenic shock. 6. Acute respiratory acidosis, stable. PLAN: The patient has received a total of 500 cc of albumin overnight. Goal urinary output is 30 cc/h. We will use dopamine intermittently, but we will ensure the patient is well hydrated before considering starting dopamine drip. This patient was discussed with Dr. Hassan this evening before this dictation. The family was also at the bedside and was updated. Job ID: [id number]
[2019-07-13] MEDS: Acetaminophen 1,000 MG in Premix Bag 1 BAG IVPB SCH ×3 (12:22→19:30)
[2019-07-13] MEDS: FLUoxetine HCl 20 MG CAP PO SCH (12:23)
[2019-07-13] MEDS: Trospium 20 MG TAB PO SCH ×2 (12:24→21:02)
[2019-07-13 13:47] LABS: Troponin I 7.922 ng/mL (< 0.028)
[2019-07-13 15:22] LABS: Anion Gap 10 mmol/L (10-20); BUN (Urea Nitrogen) 28 mg/dL (9.8-20.1); Calc. Creatinine Clearance 40 mL/min (70-130); Carbon Dioxide 23 mmol/L (23-31); Chloride 103 mmol/L (98-107); Estimated GFR-MDRD 55; Glucose 234 mg/dL (83-110); Phosphorus 3.5 mg/dL (2.3-4.7); Potassium 4.6 mmol/L (3.5-5.1); Sodium 131 mmol/L (136-145)
[2019-07-13 15:24] LABS: Lactic Acid 0.9 mmol/L (0.5-2.2)
[2019-07-13] MEDS: Sodium Chloride 0.9% 1,000 ML IV SCH (15:57)
[2019-07-13 16:02] LABS: Magnesium 2.3 mg/dL (1.6-2.6)
[2019-07-13 17:18] LABS: %Lymphocytes 7.4 % (21.0-51.0); %Neutrophils 80.6 % (42.0-75.0); Hemoglobin 8.9 g/dL (12.0-16.0); Mean Corpuscular HGB CONC 34.4 g/dL (32.0-36.0); Mean Corpuscular Hemoglobin 32.4 pg (27.0-31.0); Mean Corpuscular Volume 94.3 fL (78.0-98.0); Mean Platelet Volume 8.9 fL (7.4-10.4); Platelet Count 103 thou/uL (130-400); RBC Distribution Width 12.7 % (11.5-14.5); Red Blood Cell (RBC) Count 2.74 mill/uL (4.20-5.40); White Blood Cell (WBC) Count 6.2 thou/uL (4.8-10.8)
[2019-07-13 17:19] LABS: #Lymphocytes 0.5 thou/uL (1.20-3.40); #Monocytes 0.7 thou/uL (0.11-0.59)
--- NOTE | 2019-07-13 17:57 | PRG ---
DATE OF SERVICE: 07/13/2019 SUBJECTIVE: The patient is hospital day #3, postoperative day #2 status post ground level fall with a right proximal femur fracture. The patient also sustained a right humerus fracture, which is nonoperative. The patient remains in the critical care unit. The patient did have another episode of hypotension overnight and was placed on dopamine briefly. This morning, the patient is awake, alert, and oriented. The patient's vital signs have been stable since. The patient's systemic vascular index is 40%. The patient continues to have good urinary output. The patient voices no complaints or concerns at this time. OBJECTIVE: VITAL SIGNS: Blood pressure 127/59, pulse 76, respirations 18, SpO2 of 100%. GENERAL: Elderly female, lying in hospital bed, in no acute distress. HEENT: Unremarkable. LUNGS: Clear bilateral, good inspiratory and expiratory effort. HEART: Regular rate, regular rhythm. No murmurs. ABDOMEN: Soft, nontender, and nondistended. EXTREMITIES: Moves all extremities. Postoperative dressing to right hip is clean, dry, and intact. Right upper extremity remains in a sling. LABORATORY DATA: WBC 6.2, RBC 2.74, hemoglobin 8.9, hematocrit 25.9, [id number]. Sodium 131, BUN 28, creatinine 0.96, estimated GFR 55, glucose 234. Troponin 7.922. BNP 1156.9. DIAGNOSTIC STUDIES: No new diagnostics. ASSESSMENT: 1. Status post ground level fall, hospital day #3, postoperative day #2 status post intramedullary nail fixation, right femur. 2. Acute traumatic pain. 3. Hypotension secondary to hypovolemia. 4. Nri-NK-ukkwjbqgy myocardial infarction, postoperative. 5. Postoperative blood loss anemia, stable. 6.Hyponatremia. 7. History of type 2 diabetes, hyperlipidemia, bladder incontinence, and dementia. PLAN: Continue supportive care. We will place the patient on a diabetic diet and stop maintenance fluids. We will discontinue hemodynamic monitoring as the patient has been stable. We will have Physical and Occupational Therapy work with the patient. We will continue to monitor the patient's urinary output and resuscitate as needed. The patient was examined this morning with Dr. Hassan. Job ID: [id number] MTDD
[2019-07-13] MEDS: Atorvastatin Calcium 20 MG TAB PO SCH (20:08)
[2019-07-13] MEDS: Apixaban 5 MG TAB PO SCH (20:08)
[2019-07-13] MEDS: Donepezil HCl 10 MG TAB PO SCH (20:08)
[2019-07-13] MEDS ORDERED: Famotidine/PF 20 mg/2ml Vial SLOW IVP SCH (21:00)
--- NOTE | 2019-07-14 00:05 | PRG ---
DATE OF SERVICE: 07/13/2019 SUBJECTIVE: The patient was seen this evening, lying in bed with no signs of acute distress. She reported her pain is well controlled. Nursing stated that she ate dinner well overnight and she was able to sit up in the neuro chair and work with Physical Therapy a little bit today. OBJECTIVE: VITAL SIGNS: Temperature 98.1, pulse 76, respirations 18, oxygen saturation 100% on 2 L nasal cannula, and blood pressure 144/79. GENERAL: Elderly female, lying in bed with no signs of acute distress. PULMONARY: Equal chest rise and fall. No signs of acute respiratory distress. CARDIAC: Regular rate and rhythm. GI: Abdomen is soft, nontender, and nondistended. EXTREMITIES: 2+ pulses in all extremities. Gross motor and sensation are intact. NEUROLOGIC: GCS is 14, -1 for verbal. The patient is at her baseline. She has dementia. LABORATORY FINDINGS: There are no new laboratory findings to discuss. DIAGNOSTIC FINDINGS: There are no new diagnostic findings to discuss. ASSESSMENT: 1. Status post mechanical fall from standing. 2. Right humerus fracture, nonoperative. 3. Right intertrochanteric femur fracture, status post repair, postop day 2. 4. Non-ST segment elevation myocardial infarction, stable. 5. Postoperative blood-loss anemia, stable. 6. Hypotension likely secondary to hypovolemia and less likely due to cardiogenic shock. PLAN: Continue supportive care. Continue physical and occupational therapy. We will continue IV fluids overnight. Continue to monitor urinary output closely. She will likely be moved from the CCU tomorrow if she continues to remain stable overnight. The patient is pending placement at rehab facility. Job ID: [id number]
[2019-07-14] MEDS ORDERED: Metoprolol Tartrate 5 MG/5 ML VIAL IVP SCH (03:30)
[2019-07-14 03:37] LABS: #Lymphocytes 0.6 thou/uL (1.20-3.40); #Monocytes 0.8 thou/uL (0.11-0.59); #Neutrophils 4.6 thou/uL (1.40-6.50); %Eosinophils 0.4 % (0.0-10.0); %Lymphocytes 10.1 % (21.0-51.0); %Neutrophils 76.6 % (42.0-75.0); Hemoglobin 8.2 g/dL (12.0-16.0); Mean Corpuscular HGB CONC 34.2 g/dL (32.0-36.0); Mean Corpuscular Hemoglobin 32.2 pg (27.0-31.0); Mean Corpuscular Volume 94.1 fL (78.0-98.0); Mean Platelet Volume 8.1 fL (7.4-10.4); Platelet Count 117 thou/uL (130-400); RBC Distribution Width 12.8 % (11.5-14.5); Red Blood Cell (RBC) Count 2.54 mill/uL (4.20-5.40); White Blood Cell (WBC) Count 6.1 thou/uL (4.8-10.8)
[2019-07-14 04:02] LABS: Anion Gap 9 mmol/L (10-20); BUN (Urea Nitrogen) 31 mg/dL (9.8-20.1); Calc. Creatinine Clearance 46 mL/min (70-130); Calcium 8.3 mg/dL (7.8-10.44); Carbon Dioxide 24 mmol/L (23-31); Chloride 105 mmol/L (98-107); Estimated GFR-MDRD 64; Glucose 156 mg/dL (83-110); Phosphorus 2.9 mg/dL (2.3-4.7); Potassium 4.5 mmol/L (3.5-5.1); Sodium 133 mmol/L (136-145)
[2019-07-14] MEDS ORDERED: PHOS-NAK 1 PKT PACK PO SCH (04:30)
[2019-07-14] MEDS ORDERED: Furosemide 20 MG/2 ML VIAL SLOW IVP SCH (04:45)
[2019-07-14] MEDS ORDERED: Digoxin 0.5 MG/2 ML AMP SLOW IVP SCH (04:45)
[2019-07-14] MEDS: Insulin Regular 300 UNITS/3 ML VIAL SC PRN ×2 (05:02→16:21)
[2019-07-14] MEDS: Sodium Chloride 0.9% 1,000 ML IV SCH (07:22)
[2019-07-14] MEDS: Trospium 20 MG TAB PO SCH ×2 (07:47→20:57)
[2019-07-14] MEDS: Apixaban 5 MG TAB PO SCH ×2 (07:47→20:57)
[2019-07-14] MEDS: FLUoxetine HCl 20 MG CAP PO SCH (07:47)
[2019-07-14] MEDS: traMADol HCl 50 MG TAB PO PRN ×2 (07:48→20:56)
--- NOTE | 2019-07-14 08:04 | RAD ---
Chest AP view INDICATION: Status post mass transfusion COMPARISON: July 12, 2019 FINDINGS: Lungs:There is new airspace opacity within the right lower lobe and left upper lobe Cardiac silhouette:The cardiomediastinal silhouette appears within normal limits. Pulmonary vasculature:Normal Pleural spaces:No pleural effusion or pneumothorax is demonstrated. Upper abdomen:No abnormality seen. Osseous structures: No acute osseous abnormality. Additional findings:Interval removal of the gastric catheter. Stable left subclavian central venous c atheter. IMPRESSION: New airspace opacity in the right lower lobe and left upper lobe may reflect pulmonary ed karla; however, developing pneumonia is not excluded. Recommend continued radiographic follow-up.
[2019-07-14] MEDS ORDERED: Dronedarone HCl 400 MG TAB PO SCH (08:45)
[2019-07-14] MEDS ORDERED: Morphine 2 MG/ML SYRINGE SLOW IVP SCH (10:30)
--- NOTE | 2019-07-14 14:07 | PRG ---
DATE OF SERVICE: 07/14/2019 SUBJECTIVE: The patient was seen this morning in the critical care unit. The patient is awake, alert, in no distress. The patient denies any pain at this time. The patient does report generalized weakness. The patient has been eating and tolerating a diet. The patient was given Lasix, digoxin, and metoprolol overnight as the patient had atrial fibrillation with rapid ventricular response. The patient is currently converted around 7 o'clock this morning to sinus rhythm with heart rate in the 70s. The patient has been hemodynamically stable. OBJECTIVE: VITAL SIGNS: Blood pressure 132/63, heart rate 84, respirations 18, SpO2 of 99% on room air. GENERAL: Elderly appearing female, lying in hospital bed, the patient is awake and alert, in no acute distress. HEENT: Unremarkable. LUNGS: Rales bilateral bases, good inspiratory and expiratory effort. HEART: Regular rate, regular rhythm. No murmur. ABDOMEN: Soft, nontender, and nondistended. EXTREMITIES: Neurovascularly intact. Postoperative dressing to right hip is clean, dry, and intact. Sling in place to right upper extremity. Mild edema in all extremities. right hip dressing clean dry and intact. LABORATORY DATA: WBC 6.1, RBC 2.54, hemoglobin 8.2, hematocrit 23.9, and platelets 117. Sodium 133, potassium 4.5, chloride 105, BUN 9, creatinine 0.84, estimated GFR 64, glucose 138, calcium 8.3, phosphorus 2.9, and magnesium 2.0. BNP 1009. DIAGNOSTIC DATA: Chest x-ray, impression, no airspace opacities in the right lower and left lower lobe, may reflect pulmonary edema. ASSESSMENT: 1. Status post mechanical fall from standing. 2. Right humerus fracture, nonoperative. 3. Right intertrochanteric femur fracture postop day #3. 4. Non ST-segment elevation myocardial infarction, stable. 5. Postop blood loss anemia stable. 6. Hypotension likely secondary to hypovolemia and less likely due to cardiogenic shock, resolved. PLAN: Continue supportive care. We will discontinue the patient's right femoral arterial line and invasive monitoring. We will move the patient to the telemetry floor for continued cardiac monitoring. We will continue to monitor urinary output. We will have Physical Therapy work with the patient and have the patient up in the chair during the day. The plan was discussed with the patient and family who agrees. The patient was evaluated by Dr. Hassan this morning during morning rounds. Job ID: [id number] MTDD
[2019-07-14] MEDS ORDERED: Sodium Chloride 0.9% 1,000 ML IV SCH (14:30)
[2019-07-14] MEDS: Dronedarone HCl 400 MG TAB PO SCH (16:24)
[2019-07-14] MEDS: Donepezil HCl 10 MG TAB PO SCH (20:57)
[2019-07-14] MEDS: Famotidine 20 MG TAB PO SCH (20:58)
[2019-07-14] MEDS: Atorvastatin Calcium 20 MG TAB PO SCH (20:58)
--- NOTE | 2019-07-14 21:20 | EKG ---
Test Reason : Blood Pressure : / mmHG Vent. Rate : 099 BPM Atrial Rate : 099 BPM P-R Int : 154 ms QRS Dur : 088 ms QT Int : 346 ms P-R-T Axes : 046 000 005 degrees QTc Int : 444 ms Normal sinus rhythm Possible Lateral infarct , age undetermined Abnormal ECG When compared with ECG of 11-JUL-2019 17:58, (Unconfirmed) Non-specific change in ST segment in Inferior leads Confirmed by Patel YODER ([id number]) on 07/14/2019 9:20:09 PM Referred By: SURAJ FRAUSTO Confirmed By:Patel YODER
--- NOTE | 2019-07-14 21:24 | EKG ---
Test Reason : Blood Pressure : / mmHG Vent. Rate : 058 BPM Atrial Rate : 058 BPM P-R Int : 126 ms QRS Dur : 088 ms QT Int : 434 ms P-R-T Axes : 017 015 012 degrees QTc Int : 426 ms Sinus bradycardia with sinus arrhythmia Low voltage QRS Borderline ECG When compared with ECG of 12-JUL-2019 02:14, (Unconfirmed) Vent. rate has decreased BY 41 BPM Nonspecific T wave abnormality no longer evident in Anterior leads Confirmed by Patel YODER ([id number]) on 07/14/2019 9:24:23 PM Referred By: DARIAN MCPHERSON Confirmed By:Patel YODER
[2019-07-14] MEDS ORDERED: Acetaminophen 1,000 MG in Premix Bag 1 BAG IVPB SCH (21:45)
--- NOTE | 2019-07-15 00:04 | PRG ---
DATE OF SERVICE: 07/14/2019 SUBJECTIVE: The patient was seen this evening on telemetry. She was lying on her left side and reported she had generalized pain. Daughter at bedside reported that she was complaining of back pain. Nursing states that she just gave her some p.o. pain medications. She has been eating a little bit and drinking plenty of fluids. OBJECTIVE: VITAL SIGNS: Temperature 98.0, pulse 77, respirations 16, oxygen saturation 95% on room air, blood pressure 175/77. GENERAL: Elderly female, lying in bed on the left side with some mild distress. PULMONARY: Equal chest rise and fall. No signs of acute respiratory distress. CARDIAC: Regular rate and rhythm. GI: Abdomen is soft, nontender, nondistended. EXTREMITIES: 2+ pulses in all extremities. Gross motor and sensation are intact. ASSESSMENT: 1. Status post mechanical fall from standing. 2. Right humerus fracture, nonoperative. 3. Right intertrochanteric femur fracture, status post repair. 4. Ckg-KJ-upglssydz myocardial infarction, stable. 5. Atrial fibrillation with rapid ventricular response overnight, resolved. The patient now in normal sinus rhythm. 6. History of urinary incontinence, hyperlipidemia, diabetes, and dementia. PLAN: Continue current diet. We will give the patient one time dose of Ofirmev and continue with previously ordered p.o. tramadol. We will also schedule Tylenol q.6 hours. Continue Multaq as recommended by Dr. Garza. We will work to increase physical therapy tomorrow. Job ID: [id number]
[2019-07-15 05:03] LABS: #Monocytes 0.8 thou/uL (0.11-0.59); #Neutrophils 4.6 thou/uL (1.40-6.50); %Basophils 0.2 % (0.0-1.0); %Eosinophils 0.3 % (0.0-10.0); %Lymphocytes 15.1 % (21.0-51.0); %Monocytes 12.5 % (0.0-10.0); %Neutrophils 71.9 % (42.0-75.0); Hemoglobin 8.7 g/dL (12.0-16.0); Mean Corpuscular HGB CONC 33.6 g/dL (32.0-36.0); Mean Corpuscular Hemoglobin 31.5 pg (27.0-31.0); Mean Corpuscular Volume 93.9 fL (78.0-98.0); Mean Platelet Volume 7.5 fL (7.4-10.4); Platelet Count 148 thou/uL (130-400); RBC Distribution Width 12.8 % (11.5-14.5); Red Blood Cell (RBC) Count 2.75 mill/uL (4.20-5.40); White Blood Cell (WBC) Count 6.4 thou/uL (4.8-10.8)
[2019-07-15 05:16] LABS: Anion Gap 10 mmol/L (10-20); BUN (Urea Nitrogen) 34 mg/dL (9.8-20.1); Calc. Creatinine Clearance 38 mL/min (70-130); Carbon Dioxide 22 mmol/L (23-31); Chloride 102 mmol/L (98-107); Estimated GFR-MDRD 51; Glucose 155 mg/dL (83-110); Magnesium 1.9 mg/dL (1.6-2.6); Phosphorus 3.3 mg/dL (2.3-4.7); Potassium 4.8 mmol/L (3.5-5.1); Sodium 129 mmol/L (136-145)
[2019-07-15] MEDS: Acetaminophen 500 MG TAB PO SCH ×4 (06:33→23:35)
[2019-07-15] MEDS ORDERED: Magnesium Sulfate 2 GM in Sodium Chloride 0.9% 100 ML IVPB SCH (08:00)
[2019-07-15] MEDS ORDERED: Magnesium 2 GM/50 ML 2 GM in Premix Bag 1 BAG IVPB SCH (08:00)
[2019-07-15] MEDS: Apixaban 5 MG TAB PO SCH ×2 (08:29→19:50)
[2019-07-15] MEDS: Dronedarone HCl 400 MG TAB PO SCH ×2 (08:29→17:12)
[2019-07-15] MEDS: Trospium 20 MG TAB PO SCH ×2 (08:29→19:51)
[2019-07-15] MEDS: FLUoxetine HCl 20 MG CAP PO SCH (08:31)
--- NOTE | 2019-07-15 12:24 | PRG ---
DATE OF SERVICE: 07/15/2019 SUBJECTIVE: The patient was seen this morning on the telemetry floor. The patient is awake, alert, and in no distress. The patient is about to work with Physical Therapy at this time. The patient continues to complain of generalized weakness. The patient denies any chest pain or shortness of breath at this time. The patient continues to tolerate a regular diet. The patient remains in sinus rhythm on the property assessment monitor without any overnight events. OBJECTIVE: VITAL SIGNS: Blood pressure 134/63, SpO2 of 93% on room air, respirations 16, heart rate 70, temperature 98.1. GENERAL: Elderly female, awake, alert, sitting up in hospital bed, in no acute distress. RESPIRATORY: Equal chest rise and fall, rales in bilateral bases, good inspiratory and expiratory effort, no respiratory distress. CARDIAC: Regular rate. Regular rhythm. EXTREMITIES: Moves all extremities, neurovascularly intact, dressing to right hip is clean, dry, and intact. LABORATORY DATA: WBC 6.4, RBC 2.75, hemoglobin 8.7, hematocrit 25.8, platelets 148. Sodium 129, potassium 4.8, chloride 102, BUN 34, creatinine 1.03, estimated GFR of 51, glucose 155, calcium 8.0, phosphorus 3.3, magnesium 1.9. DIAGNOSTICS: There is no diagnostics to review today. ASSESSMENT: 1. Status post mechanical fall from standing. 2. Right humerus fracture, nonoperative. 3. Postoperative day #4 repair of right intertrochanteric femur fracture. 4. Non ST-segment elevation myocardial infarction, stable. 5. Postoperative blood loss anemia, stable. 6. History of type 2 diabetes, dementia, hyperlipidemia. 7. Hyponatremia. PLAN: Continue supportive care. Continue to have Physical and Occupational Therapy work with the patient to increase strength. We will place the patient on a 1 L free water restriction due to hyponatremia. A intermediate facility screen has been placed. Cardiology continues to follow the patient. Job ID: [id number]
--- NOTE | 2019-07-15 17:47 | EKG ---
Test Reason : STAT Blood Pressure : / mmHG Vent. Rate : 133 BPM Atrial Rate : 104 BPM P-R Int : 000 ms QRS Dur : 076 ms QT Int : 308 ms P-R-T Axes : 000 005 213 degrees QTc Int : 458 ms Atrial fibrillation with rapid ventricular response Low voltage QRS Septal infarct , age undetermined Abnormal ECG When compared with ECG of 12-JUL-2019 11:52, Significant changes have occurred Confirmed by Patel YODER ([id number]) on 07/15/2019 5:46:56 PM Referred By: KATIUSKA Confirmed By:Patel YODER
[2019-07-15] MEDS: Atorvastatin Calcium 20 MG TAB PO SCH (19:51)
[2019-07-15] MEDS: Famotidine 20 MG TAB PO SCH (19:51)
[2019-07-15] MEDS: Donepezil HCl 10 MG TAB PO SCH (19:51)
--- NOTE | 2019-07-16 00:18 | PRG ---
DATE OF SERVICE: 07/15/2019 SUBJECTIVE: The patient was seen this evening, resting in bed. She was asleep and comfortable with no signs of acute distress. Family at bedside reported the patient worked with Physical and Occupational Therapy, but was not able to get up out of bed. States pain is better controlled and has been eating a small amount. OBJECTIVE: VITAL SIGNS: Temperature 98.2, pulse 92, respirations 16, oxygen saturation 93% on room air, blood pressure 126/60. GENERAL: Elderly female, lying in bed with no signs of acute distress. PULMONARY: Equal chest rise and fall. No signs of acute respiratory distress. CARDIAC: Regular rate and rhythm. GI: Abdomen is soft, nontender, nondistended. EXTREMITIES: 2+ pulses in all extremities. Gross motor and sensation are intact. NEUROLOGIC: GCS is 14, -1 for verbal for confusion, this is patient's baseline. ASSESSMENT: 1. Status post mechanical fall. 2. Right humerus fracture, nonoperative. 3. Right intertrochanteric femur fracture, status post repair. 4. Non-ST segment elevation myocardial infarction, stable. 5. Atrial fibrillation, rapid ventricular response, resolved. 6. History of incontinence, hyperlipidemia, diabetes, and dementia. PLAN: Continue current diet and pain regimen. Continue free water restrict to 1 L. Continue to encourage Gatorade. Continue to work with Physical and Occupational Therapy. Discontinue Dougherty today. The patient is pending placement at a care home facility and is ready for discharge at this time. Job ID: [id number]
[2019-07-16 04:57] LABS: Anion Gap 12 mmol/L (10-20); BUN (Urea Nitrogen) 33 mg/dL (9.8-20.1); Calc. Creatinine Clearance 46 mL/min (70-130); Carbon Dioxide 23 mmol/L (23-31); Chloride 102 mmol/L (98-107); Estimated GFR-MDRD 64; Glucose 144 mg/dL (83-110); Magnesium 2.1 mg/dL (1.6-2.6); Phosphorus 2.9 mg/dL (2.3-4.7); Potassium 4.7 mmol/L (3.5-5.1); Sodium 132 mmol/L (136-145)
[2019-07-16 05:16] LABS: #Eosinphils 0.1 thou/uL (0.0-0.7); #Lymphocytes 0.9 thou/uL (1.20-3.40); #Monocytes 0.7 thou/uL (0.11-0.59); #Neutrophils 5.1 thou/uL (1.40-6.50); %Basophils 0.1 % (0.0-1.0); %Eosinophils 1.2 % (0.0-10.0); %Lymphocytes 13.4 % (21.0-51.0); %Monocytes 9.7 % (0.0-10.0); %Neutrophils 75.5 % (42.0-75.0); Hemoglobin 8.7 g/dL (12.0-16.0); MDiff Complete? YES; Mean Corpuscular HGB CONC 33.7 g/dL (32.0-36.0); Mean Corpuscular Hemoglobin 31.7 pg (27.0-31.0); Mean Platelet Volume 7.8 fL (7.4-10.4); Platelet Count 170 thou/uL (130-400); Platelet Morphology Comment Appears Adequate; Polychromasia SLIGHT = 2-3 cells (100X) (0-2/hpf); RBC Distribution Width 13.4 % (11.5-14.5); Red Blood Cell (RBC) Count 2.75 mill/uL (4.20-5.40); White Blood Cell (WBC) Count 6.7 thou/uL (4.8-10.8)
[2019-07-16] MEDS: Acetaminophen 500 MG TAB PO SCH ×2 (06:04→12:35)
[2019-07-16] MEDS: FLUoxetine HCl 20 MG CAP PO SCH (09:00)
[2019-07-16] MEDS: Trospium 20 MG TAB PO SCH (09:00)
[2019-07-16] MEDS: Dronedarone HCl 400 MG TAB PO SCH (09:00)
[2019-07-16] MEDS: Apixaban 5 MG TAB PO SCH (09:01)
[2019-07-16] MEDS ORDERED: Amlodipine 5 MG TAB PO SCH (10:45)
[2019-07-16 10:48] VITALS: TEMP 97.9
[2019-07-16 12:30] VITALS: BP 172/77
--- NOTE | 2019-07-16 18:53 | DIS ---
DATE OF ADMISSION: 07/11/2019 DATE OF DISCHARGE: 07/16/2019 This is Lili Lucas NP dictating a report for Stephanie Amado MD. ADMITTING PHYSICIAN: Nikolas Diane MD. CONSULTS: 1. Dr. Kearney, Orthopedic Surgery. 2. Cardiology, Dr. Garza. DISCHARGE ATTENDING: Stephanie Amado MD. PROCEDURES: 1. On 07/10/2019, brain CT; impression, no acute intracranial findings. Evolutional changes and the chronic ischemic white matter changes. 2. Chest x-ray, impression, no acute pulmonary findings. 3. Hip x-ray, right, impression; acute traumatic displaced intertrochanteric fracture of the right proximal femur, severe osteoporosis. 4. Right knee x-ray, no fracture of the knee identified. 5. Right femur x-ray; impression, acute traumatic comminuted and significantly displaced intertrochanteric fracture of the right proximal femur. No fracture of the femoral shaft. 6. Right forearm x-ray, impression, no fracture identified. 7. Right humerus x-ray, acute traumatic mildly impacted and mildly angulated fracture of the proximal humeral metaphysis. 8. Right shoulder x-ray; impression, probable fracture of the surgical neck of humerus, probably acute; probable mild impaction, diffuse osteoporosis. 9. On 07/11/2019, right femur intramedullary nail by Dr. Schneider. 10. 12-lead EKG on 07/12, normal sinus rhythm. 11. Echocardiogram on 07/12/2019, impression; estimated ejection fraction 55% to 60%, normal size left atrium, moderately enlarged right ventricle, left ventricular size is normal. Aortic valve leaflets are somewhat thickened, aortic stenosis is present, mild mitral regurg is present. Moderate to severe tricuspid regurg. 12. On 07/12/2019, placement of a triple-lumen left subclavian central venous catheter and placement of a right femoral arterial catheter. The catheter was transduced for hemodynamics monitoring. 13. 12-lead EKG on 07/14/2019, atrial fibrillation with rapid ventricular response. 14. On 07/14/2019, chest x-ray, impression, new airspace opacity in the right lower lobe and left upper lobe, may reflect pulmonary edema. PRIMARY DIAGNOSES: Status post mechanical fall, right humerus fracture, nonoperative; right intertrochanteric femur fracture, status post IM nail; [id number] elevation myocardial infarction postop; atrial fibrillation with rapid ventricular response, resolved; postop hypotension, volume depletion, improved. SECONDARY DIAGNOSES: Urinary incontinence, hyperlipidemia, diabetes, and dementia. DISCHARGE MEDICATIONS: 1. Tylenol 1000 mg q.6 hours as needed for pain. 2. Amlodipine 5 mg p.o. daily. 3. Eliquis 2.5 mg p.o. b.i.d. 4. Aricept 10 mg p.o. at bedtime. 5. Multaq 200 mg p.o. b.i.d. with meals. 6. Fluoxetine 20 mg p.o. daily. 7. Metoprolol 25 mg p.o. daily. 8. Senokot S 8.6 mg/50 mg two tablets p.o. b.i.d. as needed for constipation. 9. Zocor 40 mg p.o. at bedtime. 10. Tolterodine tartrate 4 mg capsule ER 24 hours p.o. at bedtime. HISTORY OF PRESENT ILLNESS AND HOSPITAL COURSE: This is an 83-year-old woman who resides at home, normally uses a walker to ambulate due to her dementia. Her family states that she frequently forgets to use her walker. The patient presented to the emergency room with a ground level fall landing onto her right side. The patient was unable to ambulate after the fall. The patient was found to have a right intertrochanteric femur fracture and proximal right humerus fracture. The patient went to the OR for repair of her right intertrochanteric femur fracture and became hypotensive postop. The patient required 4 L of normal saline and 1 unit of packed red blood cells. The patient was resuscitated and hemodynamic monitors were transduced. The patient became fluid overloaded after resuscitation and went into atrial fibrillation with rapid ventricular response. The patient eventually converted and was moved out of the CCU into the telemetry unit. Cardiology continued to follow the patient during her hospital stay. Medications were adjusted. The patient did have a short episode of atrial fibrillation with RVR last night. Cardiology, Dr. Garza is aware and okay for the patient to be discharged today. Medication metoprolol was added to the patient's medication regimen. The patient had generalized weakness and deconditioning throughout her hospital stay. The patient did work with Physical Therapy, but still not able to ambulate. The patient's pain was well controlled throughout her hospital stay. The patient also had a non-ST elevation myocardial infarction, most likely due to hypotension postop. On the day of discharge, the patient nor family had any complaints. The patient is awake, alert, and her pain was well controlled. The patient continues to tolerate a diabetic diet. The patient's vital signs were stable on the day of discharge, and her exam was unremarkable including cardiopulmonary and GI exam. The patient was deemed stable for discharge to [facility] for continued physical and occupational therapy. DISPOSITION: Stable. DISCHARGE INSTRUCTIONS: 1. Location: [facility] unit, [place]. 2. Diet: Diabetic diet. 3. Activity: Orthopedic limitations, partial weightbearing 50% right upper extremity, the patient is to wear a sling for comfort. The patient is weightbearing as tolerated left upper extremity, right lower extremity, and left lower extremity. 4. Followup: Follow up with Dr. Schneider in 10 days. Follow up with Cardiology. No need to follow up with Trauma Services. Please call for any questions. This is just a summary of the patient's hospital course, please see the medical record for the entire visit. Job ID: [id number]
[2019-07-16] MEDS ORDERED: Senokot S 8.6-50 MG TAB PO SCH (21:00)
[2019-07-17] MEDS ORDERED: Polyethylene Glycol 3350 17 GM Packet PO SCH (09:00)
[2019-07-17] MEDS ORDERED: Amlodipine 5 MG TAB PO SCH (09:00)
== END 2019-07-16 14:48 | DRG 480 ==
LOC: ERS 20:11 → SURG B 07-11 00:46 → CCU 07-11 21:20 → 2NO 07-14 17:54
PROVIDERS: ADMIT Specialist; ATTEND Specialist
PROC: 0QS636Z Reposition Right Upper Femur with Intramedullary Internal Fixation Device, Percutaneous Approach (ICD-10-PCS; principal; 2019-07-11)
PROC: 3E033XZ Introduction of Vasopressor into Peripheral Vein, Percutaneous Approach (ICD-10-PCS; 2019-07-11)
PROC: 04HK33Z Insertion of Infusion Device into Right Femoral Artery, Percutaneous Approach (ICD-10-PCS; 2019-07-12)
PROC: 05H633Z Insertion of Infusion Device into Left Subclavian Vein, Percutaneous Approach (ICD-10-PCS; 2019-07-12)
DX: S72.141A Displaced intertrochanteric fracture of right femur, initial encounter for closed fracture (principal); R57.0 Cardiogenic shock; R57.1 Hypovolemic shock; I21.4 Non-ST elevation (NSTEMI) myocardial infarction; S42.211A Unspecified displaced fracture of surgical neck of right humerus, initial encounter for closed fracture; I97.191 Other postprocedural cardiac functional disturbances following other surgery; E87.2 Acidosis; D62 Acute posthemorrhagic anemia; E87.1 Hypo-osmolality and hyponatremia; F03.90 Unspecified dementia, unspecified severity, without behavioral disturbance, psychotic disturbance, mood disturbance, and anxiety; Z79.899 Other long term (current) drug therapy; E78.5 Hyperlipidemia, unspecified; E11.9 Type 2 diabetes mellitus without complications; Z90.710 Acquired absence of both cervix and uterus; Z98.42 Cataract extraction status, left eye; Z98.41 Cataract extraction status, right eye; I48.91 Unspecified atrial fibrillation; W18.39XA Other fall on same level, initial encounter; I95.81 Postprocedural hypotension; R32 Unspecified urinary incontinence
CPT/HCPCS: 36415; 36416; 36430; 70450; 71045; 76000; 80048; 80053; 82533; 82805; 83605; 83735; 83880; 84100; 84484; 85025; 85610; 85730; 86850; 86900; 86901; 93005; 93010; 93306; C1713; C1769; G0390; J0131; J0690; J1160; J1265; J1720; J1815; J1885; J1940; J2001; J2270; J2405; J2704; J3010; J3475; P9016; P9045; S0028

== ENCOUNTER 2019-12-06 23:25 | Emergency (ER) | payer MEDICARE ==
[2019-12-06 23:49] LABS: #Basophils 0.1 thou/uL (0.0-0.2); #Eosinphils 0.2 thou/uL (0.0-0.7); #Lymphocytes 1.4 thou/uL (1.20-3.40); #Monocytes 0.6 thou/uL (0.11-0.59); #Neutrophils 3.6 thou/uL (1.40-6.50); %Basophils 0.9 % (0.0-1.0); %Eosinophils 3.4 % (0.0-10.0); %Lymphocytes 24.6 % (21.0-51.0); %Monocytes 10.1 % (0.0-10.0); %Neutrophils 61.1 % (42.0-75.0); Hemoglobin 12.3 g/dL (12.0-16.0); Mean Corpuscular HGB CONC 33.5 g/dL (32.0-36.0); Mean Corpuscular Hemoglobin 30.7 pg (27.0-31.0); Mean Corpuscular Volume 91.6 fL (78.0-98.0); Mean Platelet Volume 7.3 fL (7.4-10.4); Platelet Count 223 thou/uL (130-400); RBC Distribution Width 14.2 % (11.5-14.5); Red Blood Cell (RBC) Count 4.01 mill/uL (4.20-5.40); White Blood Cell (WBC) Count 5.9 thou/uL (4.8-10.8)
[2019-12-07 00:10] LABS: ALT (SGPT) 9 U/L (8-55); AST (SGOT) 13 U/L (5-34); Albumin 3.2 g/dL (3.4-4.8); Alkaline Phosphatase 103 U/L (40-110); Anion Gap 11 mmol/L (10-20); BUN (Urea Nitrogen) 45 mg/dL (9.8-20.1); Bilirubin, Total 0.2 mg/dL (0.2-1.2); Calc. Creatinine Clearance 0 mL/min (70-130); Calcium 8.8 mg/dL (7.8-10.44); Carbon Dioxide 27 mmol/L (23-31); Chloride 100 mmol/L (98-107); Estimated GFR-MDRD 59; Globulin 2.9 g/dL (2.4-3.5); Glucose 168 mg/dL (83-110); Potassium 3.8 mmol/L (3.5-5.1); Protein, Total 6.1 g/dL (6.0-8.3); Sodium 134 mmol/L (136-145)
== END 2019-12-07 00:59 | disposition home or self-care (01) ==
LOC: ERS 23:25
DX: E86.0 Dehydration (principal); I95.9 Hypotension, unspecified; E11.9 Type 2 diabetes mellitus without complications; E78.5 Hyperlipidemia, unspecified; E78.00 Pure hypercholesterolemia, unspecified; I10 Essential (primary) hypertension; F03.90 Unspecified dementia, unspecified severity, without behavioral disturbance, psychotic disturbance, mood disturbance, and anxiety; Z79.899 Other long term (current) drug therapy
CPT/HCPCS: 36415; 80053; 85025; 96360